=== PATIENT | female | born 1950 | race Caucasian/White ===

== ENCOUNTER 2023-07-19 10:38 | Outpatient (CLI) | payer MEDICARE | END 2023-07-19 10:39 | disposition home or self-care (01) | LOC: CSHMAMMO 10:38 | PROVIDERS: ATTEND Internal Medicine | DX: Z12.31 Encounter for screening mammogram for malignant neoplasm of breast (principal); Z80.3 Family history of malignant neoplasm of breast; Z91.89 Other specified personal risk factors, not elsewhere classified | CPT/HCPCS: 77063; 77067 ==